=== PATIENT | male | born 1970 | race Caucasian/White ===

== ENCOUNTER 2024-04-29 18:37 | Emergency (ER) | payer SELFPAY ==
[2024-04-29 18:40] VITALS: BMI 36.2
[2024-04-29 18:53] VITALS: BP 0/0; PULSE 0; RESP 0; TEMP -17.7; TEMP 0; O2SAT 0
--- NOTE | 2024-04-29 18:57 | HMH.EDGENADL ---
Discharge Plan Clinical Impressions Clinical Impression: Cardiac arrest Discharge ED Provider: Fern Crain General Adult HPI General Stated complaint: code Time Seen by Provider: 04/29/24 18:43 History of Present Illness HPI narrative: Patient is a 53-year-old male who arrived in full cardiopulmonary arrest. He was accompanied by police officers as well as EMS. Someone called 911 and by the time police got to him he had agonal respirations had a witnessed arrest and chest compressions that started at 6:01 PM. By the time EMS got to him he was in full cardiac arrest chest compressions were ongoing he was intubated using a supraglottic airway and was started with an auto pulse on continuous chest compressions. 3 rounds of epinephrine were administered prehospital patient never had return of spontaneous circulation and arrived in full cardiac arrest. No further history able to be obtained from the patient given his clinical status. No other family or friends around to provide any further information as well. Related Data Allergies Allergy/AdvReac Type Severity Reaction Status Date / Time Unable to Assess Allergy Verified 04/29/24 18:40 [facility] Disclaimer: The information contained in this section may have been updated after the patient was seen, as this information can be updated by other users. Social History Smoking Status: Unknown if ever smoked alcohol intake: never current occupational status: other Travel in the last 8 weeks: None ROS Obtained: Yes unobtainable due to mental condition Physical Exam General General appearance: other (Full cardiac arrest intubated GCS of 3) Respiratory Respiratory exam: Present other (Bilateral breath sounds patient appears very cyanotic and cold) Cardiovascular Cardiovascular exam: Present other (Pulseless auto pulse ongoing performing continuous chest compressions) Neurological Exam Neurological exam: Present other (GCS of 3T) Medical Decision Making Medical Records Screening: Per USPSTF and CDC recommendations, given the prevalence of disease in our region, it is our hospital?s policy to screen for HIV and viral Hepatitis for all patients aged 18 and over and those with ongoing risk factors. [place] Inquiry Pt receiving controlled substance: No Medical Decision Narrative: 53-year-old male presenting with above history and physical. Numerous people at the bedside to do chest compressions as well as to administer medications and IV medications patient had an IO upon arrival and had a IV that was placed in his left antecubital fossa. Auto pulse was ongoing reattempted to get end-tidal CO2 with a supraglottic airway but were unsuccessful with this therefore patient had endotracheal intubation performed by me with successful airway intervention direct visualization of the tube going through the cords. Patient was placed on end-tidal CO2 as well as pulse ox at this point ongoing chest compressions were continued CPR and ACLS were continued ultimately patient had a total of 8 rounds of epinephrine 5 here 3 prehospital multiple doses of Narcan were administered prehospital and in the ED bicarb was administered as well serial bedside ultrasounds were performed during pulse checks which were saved please see procedure notes and there was never any cardiac activity. After a total of about 15 minutes of CPR including 20 minutes in the emergency department patient had no cardiac activity and had no chance of good neurologic outcome therefore after discussion with everyone in the room we decided that further resuscitative efforts were futile time of was called at 1853. No further family or friends were able to be identified or notified. Procedures Intubation Mallampati Score:: Class I Time out performed: No sedative: none Laryngoscope: Luann (4) ET Tube Size: 7.5 Tube Secured Depth (cm): 21 Tube Placement Confirmation: visualized tube passing through cords, equal breath sounds bilaterally and confirmation by capnometry Patient Tolerated Procedure: well Intubation Complications: none Miscellaneous Procedure Procedure Performed: Limited cardiac ultrasound Indication: Cardiac arrest Identified structures: The heart was visualized in the parasternal long axis, parastenal short axis, apical four chamber and subxyphiod views. The IVC was visualized in the short axis and long axis at its entry into the right atrium. Findings: Serial bedside ultrasounds were performed and no cardiac activity was identified on serial assessments Impression: Complete cardiac standstill Images were saved to permanent archive The study was technically adequate CPT: 27459-98 This study was performed by me, and I personally interpreted all images/videos. Based on my clinical judgement, these images were adequate and did not necessitate further imaging. CPR Indication cardiac arrest Ongoing CPR was performed by the team with ACLS guidelines followed for a total of 20 minutes in the emergency department Critical Care Critical Care Time Critical Care Time: Yes Attestation: On , the high probability of a clinically significant, sudden or life threatening deterioration of the following system(s) required my full and direct attention, intervention and personal management. The time I documented below is in addition to time spent performing reported procedures but includes the following listed in this critical care notation. Total Time Total Critical Care Time: 35
--- NOTE | 2024-04-29 19:05 | EXP.DEATH.NO ---
Pronouncement Note Date and Time of Date of : 04/29/24 Time of : 18:53 PCOD Preliminary cause of : Cardiac arrest Summary Additional details: See ED note. Additional Data Confirmation of : no pulse, no respirations, no heart sounds, pupils fixed and dilated and other (cardiac standstill on bedside US ) Family: not available Was code activated?: Yes Autopsy should be considered if:: Unknown or unanticipated medical complications Cause is not known with certainty on clinical grounds Would allay concerns of the public/family regarding Unexplained/unexpected apparently natural and not subject to a forensic medical jurisdiction DOA Within 24 hours of admission Sustained or apparently sustained injury while in the hospital Result of high risk, infectious and contagious disease Obstetric and pediatric arising from environmental or occupational hazard Unexplained/unexpected from dental, medical, or surgical diagnostic procedures and/or therapies Would disclose a known or suspected illness which also may have a bearing on survivors or recipients of transplanted organs Autopsy requested?: No Does not meet criteria (likely coroners case ) grazing examiner notified?: Yes Organ bank notified?: No Advance directives: No
--- NOTE | 2024-04-29 19:22 | PC.NURSE ---
Notified Jace. s/w Cliff Cowart, reference # [id number]
--- NOTE | 2024-04-29 19:24 | PC.NURSE ---
Jacquelin Maciel at bedside
--- NOTE | 2024-04-29 19:30 | PC.NURSE ---
Cliff Cowart called back stating that the pt has been ruled out for them and may proceed onto home or ME's
--- NOTE | 2024-04-29 19:32 | PC.NURSE ---
Code Note: @ 182- Notified by EMS they are coming in with a code, 3 min out. Notified RT, MD Anuel, and paged overhead per protocol. @ 1824- EMS arrived to ER bay, autopulse providing CPR. No ROSC has been obtained, 4 mg Narcan has been given, 3x doses of Epi in route by EMS. IO in place to LLE & receiving 1L bolus of LR. 7.[address], placed by EMS to 100% @ 183- Pt in trauma room 3, at bedside with u/s @ 183- Epi in to LLE IO @ 183- 18g LAC placed by Diana Bazzi RN, blood collected and sent with lab staff. sat 13%, ambubag providing breaths with 100% o2 by RT @ 1833- Narcan 2 mg IVP to 18g LAC. sat 39%. removed IGEL and prepared to intubate. 7.[address] Crain. Good color change noted. RT bagging pt with 100% o2. sat improving. BP 215/44 HR 110- cpr in progress with autopulse @ 183- pulse check, no pulse. Battery changed on autopulse, manual CPR administered by Dr. Crain. Epi given to LAC IV @ 183- color change noted, equal chest rise @ 184- pulse check- no pulse, PEA on monitor. Resumed compressions @ 184- epi given. 16fr OG placed. Rectal temp 94, bear hugger placed @ 1843- bicarb given, warm 1L LR given. @ 184- pulse check, no pulse, resumed cpr with autopulse. 16f gray cath placed @ 184- pulse check, no pulse, resumed cpr with autopulse. Epi given. performed heart u/s- no activity @ 1849- pulse check, no pulse, PEA on monitor, resumed CPR with autopulse @ 1850- bicard given. FS 267. @ 1851- pulse check, no pulse, no cardiac activity per MD with u/s. @ 1852- Dr. Crain called [place] @ 1854- PD called dispatch to call bike shop manager. Confirmed no family or friends in ER lobby or anyone has called regarding this pt. Registration aware to notify ER staff if anyone arrives.
--- NOTE | 2024-04-29 20:13 | PC.NURSE ---
Pt was loaded by [employer] and left at 2009 from [facility].
== END 2024-04-29 18:53 | disposition expired ==
PROVIDERS: Emergency Provider Student in an Organized Health Care Education/Training Program
DX: I46.9 Cardiac arrest, cause unspecified (principal)
CPT/HCPCS: 92950; 99291